=== PATIENT | male | born 1970 | race Two or more races ===

== ENCOUNTER 2018-02-13 13:55 | Outpatient (CLI) | payer OTHER | END 2018-02-13 14:22 | disposition home or self-care (01) | LOC: RAD 13:55 | DX: M54.5 Low back pain (principal); M48.062 Spinal stenosis, lumbar region with neurogenic claudication; M54.16 Radiculopathy, lumbar region ==

== ENCOUNTER 2021-11-23 17:05 | Emergency (ER) | payer OTHER ==
[~2021-11-23] VITALS: Ht 177.8 cm; Wt 79.4 kg
[2021-11-24] MEDS ORDERED: CEPHALEXIN500 MG PO (00:09)
[2021-11-24] MEDS ORDERED: TAMS0.4C PO (00:09)
== END 2021-11-24 00:44 | disposition home or self-care (01) ==
LOC: ER 17:05
DX: N39.0 Urinary tract infection, site not specified (principal); B96.1 Klebsiella pneumoniae [K. pneumoniae] as the cause of diseases classified elsewhere; N20.0 Calculus of kidney; E11.9 Type 2 diabetes mellitus without complications; Z88.8 Allergy status to other drugs, medicaments and biological substances

== ENCOUNTER 2021-12-16 07:51 | Outpatient (CLI) | payer OTHER ==
[~2021-12-16 07:51] MED LIST: CEPHALEXIN500 MG PO; TAMS0.4C PO
== END 2021-12-16 07:52 | disposition home or self-care (01) ==
LOC: NUCLEAR 07:51
PROVIDERS: ATTEND Internal Medicine Endocrinology, Diabetes & Metabolism
DX: G93.81 Temporal sclerosis (principal); G30.0 Alzheimer's disease with early onset; Z88.1 Allergy status to other antibiotic agents
CPT/HCPCS: 78803; A9557

== ENCOUNTER 2022-06-27 17:54 | Emergency (ER) | payer OTHER ==
[~2022-06-27] VITALS: Ht 177.8 cm; Wt 78.0 kg
[2022-06-27] MEDS ORDERED: GLUMETZA1000 MG PO (18:21)
[2022-06-27] MEDS ORDERED: ONDANSETRON ODT8 MG PO (21:04)
== END 2022-06-27 21:15 | disposition home or self-care (01) ==
LOC: ER 17:54
DX: B34.9 Viral infection, unspecified (principal); Z88.1 Allergy status to other antibiotic agents; Z88.3 Allergy status to other anti-infective agents; E11.9 Type 2 diabetes mellitus without complications

== ENCOUNTER 2022-06-28 13:19 | Emergency (ER) | payer OTHER ==
[~2022-06-28] VITALS: Ht 182.9 cm; Wt 59.0 kg
[~2022-06-28 13:19] MED LIST changes: +GLUMETZA1000 MG PO; +ONDANSETRON ODT8 MG PO
== END 2022-06-28 22:58 | disposition home or self-care (01) ==
LOC: ER 13:19
DX: K52.9 Noninfective gastroenteritis and colitis, unspecified (principal); B34.9 Viral infection, unspecified; E11.9 Type 2 diabetes mellitus without complications; Z20.822 Contact with and (suspected) exposure to COVID-19